=== PATIENT | female | born 2000 ===

== ENCOUNTER 2019-01-13 11:23 | Emergency (ER) | payer OTHER ==
[2019-01-13 12:05] VITALS: BP 116/88
--- NOTE | 2019-01-13 12:40 | UC ---
Abdominal Pain Female HPI - HPI Summary HPI Summary: 18 y/o female adolescent to the urgent care c/o LLQ abdominal pain since 01/10/2019. AT the end of the day abdominal pain resolved on its own. Yesterday it has been intermittent and dull. However, This morning it returned and she has an episode of nausea and vomiting. Pt states pain is constant now , achy radiating to her left side of lower back, 8/10. She has been drinking fluids, but has decrease appetite. The last BM was yesterday and was normal. She had mild frequency on urination this morning, but now she hasn't been able to collect her urine. Nausea resolve by now. She has not taking any medication to alleviate pain. LMP: 01/07/2019 w/ irregular menstrual cycles. it ended 2 days ago. Pt denies fever, chills, dysuria, Flank pain, SOB, dizziness, chest pain, diarrhea or constipation. No blood in the stool, or Hx of kidney stones or ovarian cysts. Pt also denies vaginal discharge or Hx of STD's - History of Current Complaint Chief Complaint: UCGI Stated Complaint: LOWER LT ABD PAIN Time Seen by Provider: 01/13/19 12:35 Hx Obtained From: Patient Hx Last Menstrual Period: 01/07/19 Onset/Duration: Gradual Onset, Lasting Days - 4 days, Still Present, Worse Since - this morning Timing: Constant Severity Initially: Mild Severity Currently: Moderate Pain Intensity: 8 Pain Scale Used: 0-10 Numeric Location: Discrete At: LLQ Radiates: Yes Radiates to: Other - left lower back Character: Sharp - when sitting Associated Signs and Symptoms: Positive: Back Pain - left lower back, Decreased Appetite, Nausea - this morning and resolved by now, Vomiting - this morning 1 episode and resolved now. Negative: Diaphoresis, Fever, Cough, Chest Pain, Dizzy, Constipation, Blood in Stool, Urinary Symptoms, Vaginal Bleeding, Diarrhea - Risk Factors Ectopic Risk Factor: Negative Ovarian Torsion Risk Factor: Negative Allergies/Adverse Reactions: Allergies Allergy/AdvReac Type Severity Reaction Status Date / Time No Known Allergies Allergy Verified 01/13/19 12:01 PMH/Surg Hx/FS Hx/Imm Hx Previously Healthy: Yes - Pt denies PMHX - Surgical History Surgical History: None - Family History Known Family History: Positive: Hypertension, Diabetes - Social History Occupation: Student Lives: Dormitory/Roommates Alcohol Use: Rare Substance Use Type: None Smoking Status (MU): Never Smoked Tobacco - Immunization History Vaccination Up to Date: Yes Review of Systems All Other Systems Reviewed And Are Negative: Yes Constitutional: Positive: Negative Skin: Positive: Negative Eyes: Positive: Negative ENT: Positive: Negative Respiratory: Positive: Negative Cardiovascular: Positive: Negative Gastrointestinal: Positive: Abdominal Pain - LLQ abdominal pain, Vomiting - 1 episode this morning, resolved by now, Nausea - one episode and resolved by now Genitourinary: Positive: Negative. Negative: Dysuria, Hematuria, Frequency, Vaginal/Penile Pain Motor: Positive: Negative Neurovascular: Positive: Negative Musculoskeletal: Positive: Negative Neurological: Positive: Negative Psychological: Positive: Negative Is Patient Immunocompromised?: No Physical Exam - Summary Physical Exam Summary: Vital Signs Reviewed: Yes General:Patient is a well developed and nourished obese female adolescent who is sitting comfortable in the examining table. Patient is not in any acute respiratory distress. Eyes: Positive: Conjunctiva Clear - PERRLA, EOMI, fundi grossly normal ENT: Positive: Normal ENT inspection, Hearing grossly normal, Pharynx normal, TMs normal Neck: Positive: Supple, Nontender, No Lymphadenopathy Respiratory: Positive: Chest non-tender, Lungs clear, Normal breath sounds, No respiratory distress Cardiovascular: Positive: RRR,S1 and S2 present, No Murmur, Pulses Normal, Brisk Capillary Refill Abdomen Description: Positive: Nontender, Abd: Flat with no distention. No surface trauma, scars, incisions. hyperactive bowel sounds present in all four quadrants. No tenderness, guarding, rigidity to palpation. No masses palpated, no pulsation in epigastric area. No organomegaly. Negative Dodge signs. No periumbilical tenderness. No rebound in the lower quadrants. NT over McBurneys point. NO suprapubic tenderness on palpation. Good femoral pulses bilaterally. No hernia noted. No CVAT bilaterally. Pt able to jump in her feet w/o triggering any abdominal pain Musculoskeletal: Positive: Strength Intact, ROM Intact, No Edema,FROM in all major joints, no edema, no cyanosis or clubbing. Neuro: Alert and oriented x 3. No acute neurological deficits. Speech is normal. Psychological: WNL Skin: Dry and warm Triage Information Reviewed: Yes Vital Signs: Initial Vital Signs Temp 98.2 F 01/13/19 12:01 Pulse 86 01/13/19 12:01 Resp 18 01/13/19 12:01 BP 116/88 01/13/19 12:01 Pulse Ox 100 01/13/19 12:01 Abd Pain Female Course/Dx - Course Course Of Treatment: 18 y/o female adolescent to the urgent care c/o LLQ abdominal pain since 01/10/2019. AT the end of the day abdominal pain resolved on its own. Yesterday it has been intermittent and dull. However, This morning it returned and she has an episode of nausea and vomiting. Pt states pain is constant now , achy radiating to her left side of lower back, 04/13. She has been drinking fluids, but has decrease appetite. The last BM was yesterday and was normal. She had mild frequency on urination this morning, but now she hasn't been able to collect her urine. Nausea resolve by now. She has not taking any medication to alleviate pain. LMP: 01/07/2019 w/ irregular menstrual cycles. it ended 2 days ago. Pt denies fever, chills, dysuria, Flank pain, SOB, dizziness, chest pain, diarrhea or constipation. No blood in the stool, or Hx of kidney stones or ovarian cysts. Pt also denies vaginal discharge or Hx of STD's. Hx obtained. Pt is hemodyamically stable, sitting comfortably in the examining table w/o any apparent pain distress, Vital signs WNL, Abd: Flat with no distention. No surface trauma, scars, incisions. hyperactive bowel sounds present in all four quadrants. No tenderness, guarding, rigidity to palpation. No masses palpated, no pulsation in epigastric area. No organomegaly. Negative Dodge signs. No periumbilical tenderness. No rebound in the lower quadrants. NT over McBurneys point. NO suprapubic tenderness on palpation. Good femoral pulses bilaterally. No hernia noted. No CVAT bilaterally. Pt able to jump in her feet w/o triggering any abdominal pain on examination. UA ordered and patient took about 1hr and 30 min to collect urine. Result: + trace blood, + trace Leukoesteraces, 1+ketones and protein. Pt w/ possible UTI. Urine culture ordered to r/o any abnormality. Pt will be notified if it need further management. Pt given at the clinic Ibuprofen PO by the nurse. Pt tolerated well medication and pain decrease. Pt states she was feeling better. However, at this moment no US available to r/o ovarian cyst or other pelvic abnormality. Symptoms discussed w/ Dr Yañez . He recommended to Tx Pt's UTI and recommend patient to go to the [place] ER if abdominal pain returns for further evaluation and treatment. Pt explained the importance to r/o ovarian cysts. Abdomen was re-asses and still negative. Pt states she will go to the ER if pain returns, but she was feeling better.D/C instructions explained. Pt understood and agreed w/ plan of care, Pt left the clinic ambulating , hemodynamically stable, A&OX3 - Differential Dx/Diagnosis Differential Diagnosis: Appendicitis, Constipation, Diverticulitis, Ectopic , Ovarian Cyst, Pelvic Inflammatory Disease, , Renal Colic, Urinary Tract Infection, Other - cervicitis Provider Diagnosis: Acute abdominal pain in left lower quadrant, UTI (urinary tract infection) - Physician Notification/Consults Discussed Care of Patient With: Jessieu Otilio - Dr Yañez agreed w/ Pt's plan of care Discharge - Sign-Out/Discharge Documenting (check all that apply): Patient Departure - D/C home w/ hihgly recommendation to the ER if symptoms return All imaging exams completed and their final reports reviewed: No Studies - Discharge Plan Condition: Stable Disposition: HOME-RECOMMEND TO ED Prescriptions: Cephalexin CAP* [Keflex CAP*] 500 mg PO BID AC #14 cap Ibuprofen TAB* [Motrin TAB* 600 MG] 600 mg PO Q6H PRN #30 tab PRN Reason: Pain Patient Education Materials: Urinary Tract Infection in Women (ED), Acute Abdominal Pain (ED) Referrals: [facility] [place] [facility] [Outside] Additional Instructions: 1- Please take Keflex PO x 7 days to alleviate urinary symptoms. Increase increase fluid intake, and rest. 2-Urine sent for culture if any abnormality, you will be notified for further treatment. 3- Please take Ibuprofen PO 600mg PO q6-8hrs prn after meals to alleviate pain. However, I strongly recommend if abdominal pain returns and it is severe despite taking medications, please go immediately to the [place] ER for further evaluation and treatment. It is very important to r/o an ovarian cyst and since we don't have US available today. 4-If symptoms do not improve f/u with your PCP for further evaluation and treatment. - Billing Disposition and Condition Condition: STABLE Disposition: Home-Recommend to ED - Attestation Statements Provider Attestation: I was available for consult. This patient was seen by the KARTHIKEYAN and care discussed with me. .The patient was not seen by or examined by me -Michael Yañez MD
[2019-01-13] MEDS ORDERED: Ibuprofen TAB* 600 MG PO ONE (13:23)
--- NOTE | 2019-01-16 07:25 | UC ---
- Progress Note Progress Note: URine culture showed no growth. You do not have a urinary tract infection. You can discontinue antibiotics. If you symptoms have persisted, recommend following up with your PCP, or return to urgent care or go to the ER Course/Dx - Diagnoses Provider Diagnoses: Acute abdominal pain in left lower quadrant, UTI (urinary tract infection) Discharge - Sign-Out/Discharge Documenting (check all that apply): Post-Discharge Follow Up All imaging exams completed and their final reports reviewed: No Studies - Discharge Plan Condition: Stable Disposition: HOME-RECOMMEND TO ED Prescriptions: Cephalexin CAP* [Keflex CAP*] 500 mg PO BID AC #14 cap Ibuprofen TAB* [Motrin TAB* 600 MG] 600 mg PO Q6H PRN #30 tab PRN Reason: Pain Patient Education Materials: Urinary Tract Infection in Women (ED), Acute Abdominal Pain (ED) Referrals: [facility] [place] [facility] [Outside] Additional Instructions: 1- Please take Keflex PO x 7 days to alleviate urinary symptoms. Increase increase fluid intake, and rest. 2-Urine sent for culture if any abnormality, you will be notified for further treatment. 3- Please take Ibuprofen PO 600mg PO q6-8hrs prn after meals to alleviate pain. However, I strongly recommend if abdominal pain returns and it is severe despite taking medications, please go immediately to the [place] ER for further evaluation and treatment. It is very important to r/o an ovarian cyst and since we don't have US available today. 4-If symptoms do not improve f/u with your PCP for further evaluation and treatment. - Billing Disposition and Condition Condition: STABLE Disposition: Home-Recommend to ED
== END 2019-01-13 14:25 | disposition home health service (06) ==
LOC: UCCORT 11:23
DX: N39.0 Urinary tract infection, site not specified (principal); M54.5 Low back pain
CPT/HCPCS: 81003; 84702; 87086; 99202; A9270-GY; G0463